=== PATIENT | male | born 1990 | race Caucasian/White ===

== ENCOUNTER 2019-06-06 23:16 | Inpatient (IN) | payer SELFPAY ==
[~2019-06-06] VITALS: Ht 170.2 cm; Wt 72.1 kg
[2019-06-06] MEDS ORDERED: SODIUM CHLORIDE 0.9% 1,000 ML IV ONE (23:59)
[2019-06-07] VITALS (10 sets, daily range): BP systolic 113–137; BP diastolic 61–80
[2019-06-07 00:49] LABS: BASOPHILS % 0.3 % (0.0-2.0); EOSINOPHILS % 0.6 % (0.0-5.0); HEMATOCRIT. 46.9 % (42.0-52.0); HEMOGLOBIN. 16.5 g/dL (14.0-18.0); MEAN CORPUSCULAR HEMOGLOBIN 33.6 pg (28.0-32.0); MEAN CORPUSCULAR VOLUME 95.7 fL (80.0-94.0); MEAN PLATELET VOLUME 8.4 fl (7.4-10.4); MONOCYTES % 6.2 % (2.0-8.0); NEUTROPHILS % 62.9 % (40.0-76.0); PLATELET 235 x1000/uL (130-400); RED CELL DISTRIBUTION WIDTH 12.8 % (11.6-14.6)
[2019-06-07 00:55] LABS: CHLORIDE 98 mEq/L (98-107)
[2019-06-07 01:00] LABS: ETHANOL BLOOD 168 mg/dL
[2019-06-07 01:02] LABS: LDL CHOLESTEROL 170 mg/dL (5-100)
[2019-06-07 02:12] LABS: CLARITY URINE CLEAR (CLEAR); COLOR URINE YELLOW (YELLOW); KETONES URINE 1+ (NEGATIVE); LEUKOCYTE ESTERASE URINE NEGATIVE (NEGATIVE); NITRITE URINE NEGATIVE (NEGATIVE); OCCULT BLOOD URINE NEGATIVE (NEGATIVE); PROTEIN URINE 1+ (NEGATIVE); SPECIFIC GRAVITY URINE 1.051 (1.005-1.030); UROBILINOGEN URINE 0.2 E.U./dL (0.2-1.0)
[2019-06-07 02:23] LABS: *AMPHETAMINES SCREEN URINE PRESUMTIVE POSITIVE (NEGATIVE); *BARBITURATES SCREEN URINE NEGATIVE (NEGATIVE); *BENZODIAZEPINES SCREEN URINE NEGATIVE (NEGATIVE); *COCAINE SCREEN URINE NEGATIVE (NEGATIVE)
[2019-06-07 02:24] LABS: CANNABINOID URINE SCREEN NEGATIVE (NEGATIVE); METHADONE URINE SCREEN NEGATIVE (NEGATIVE); OPIATES URINE SCREEN NEGATIVE (NEGATIVE); PHENCYCLIDINE URINE SCREEN NEGATIVE (NEGATIVE)
[2019-06-07] MEDS ORDERED: IOHEXOL-350 100 ML BOTTLE ONE (02:54)
[2019-06-07] MEDS ORDERED: ASPIRIN 325MG TABLET PO ONE (03:30)
[2019-06-07] MEDS ORDERED: CLONIDINE 0.1MG TABLET PO PRN (08:00)
[2019-06-07] MEDS ORDERED: ACETAMINOPHEN 325MG TABLET PO PRN (08:00)
[2019-06-07] MEDS ORDERED: ONDANSETRON HCL 4MG/2ML INJ IV PRN (08:00)
[2019-06-07] MEDS ORDERED: LORAZEPAM 0.5MG TABLET PO PRN (08:00)
[2019-06-07] MEDS ORDERED: HYDROCODONE/ACETAMINOPHEN 5/325MG TABLET PO PRN (08:00)
[2019-06-07] MEDS ORDERED: LORAZEPAM 2MG/ML CPJ IV PRN (08:00)
[2019-06-07] MEDS ORDERED: DOCUSATE SODIUM 100MG CAPSULE PO PRN (08:00)
[2019-06-07] MEDS ORDERED: IPRATROPIUM/ALBUTEROL 0.5-3(2.5)MG/3ML NEB INH PRN (08:00)
[2019-06-07] MEDS ORDERED: FOLIC ACID 1 MG, THIAMINE HCL 100 MG, MVI, ADULT NO.1 10 ML in DEXTROSE 5% WATER 1,000 ML IV ONE ×4 (10:00)
[2019-06-07] MEDS: INSULIN GLARGINE UD 100 UNITS/ML SYR SUBCUT SCH ×2 (10:29→21:28)
[2019-06-07] MEDS: CHLORDIAZEPOXIDE 25MG CAPSULE PO SCH ×2 (13:51→21:28)
[2019-06-07] MEDS ORDERED: DEXTROSE 50% WATER 50ML SYRINGE IV PRN (17:45)
[2019-06-07] MEDS: BLOOD SUGAR DIAGNOSTIC STRIP TEST SCH ×2 (17:45→21:00)
[2019-06-07] MEDS: INSULIN LISPRO 100 UNITS/ML SUBCUT SCH ×2 (18:10→22:24)
[2019-06-07] MEDS ORDERED: ENOXAPARIN 40MG/0.4ML SYR SUBCUT SCH (20:45)
[2019-06-07] MEDS ORDERED: ATORVASTATIN CALCIUM 40MG TABLET PO SCH (21:00)
[2019-06-07] MEDS: CLOPIDOGREL 75MG TABLET PO SCH (22:27)
[2019-06-08] VITALS (7 sets, daily range): BP systolic 104–119; BP diastolic 60–73
[2019-06-08 06:52] LABS: CHLORIDE 104 mEq/L (98-107)
[2019-06-08 07:00] LABS: BASOPHILS % 0.6 % (0.0-2.0); EOSINOPHILS % 3.9 % (0.0-5.0); HEMATOCRIT. 46.8 % (42.0-52.0); HEMOGLOBIN. 16.5 g/dL (14.0-18.0); LYMPHOCYTES % 37.1 % (20.0-50.0); MEAN CORPUSCULAR HEMOGLOBIN 33.4 pg (28.0-32.0); MEAN PLATELET VOLUME 8.8 fl (7.4-10.4); MONOCYTES % 8.1 % (2.0-8.0); NEUTROPHILS % 50.3 % (40.0-76.0); PLATELET 231 x1000/uL (130-400); RED BLOOD CELL COUNT 4.93 mill/uL (4.7-6.1); RED CELL DISTRIBUTION WIDTH 12.6 % (11.6-14.6)
[2019-06-08] MEDS: CHLORDIAZEPOXIDE 25MG CAPSULE PO SCH ×2 (07:02→12:43)
[2019-06-08 07:04] LABS: T4 FREE 1.01 ng/dL (0.76-1.46)
[2019-06-08] MEDS: BLOOD SUGAR DIAGNOSTIC STRIP TEST SCH ×3 (07:30→18:16)
[2019-06-08 07:50] LABS: VITAMIN B12 SERUM 520 pg/mL (211-911)
[2019-06-08] MEDS: CLOPIDOGREL 75MG TABLET PO SCH (08:32)
[2019-06-08] MEDS: INSULIN LISPRO 100 UNITS/ML SUBCUT SCH ×4 (08:33→12:42)
[2019-06-08] MEDS: INSULIN GLARGINE UD 100 UNITS/ML SYR SUBCUT SCH (11:40)
[2019-06-08] MEDS ORDERED: LANTUSUD SUBCUT (17:31)
[2019-06-08] MEDS ORDERED: METF500T PO (17:31)
[2019-06-08] MEDS ORDERED: ASPI-1393 MT (17:31)
[2019-06-08] MEDS ORDERED: LINA5TAB PO (17:31)
[2019-06-08] MEDS ORDERED: CLOP75TA15 PO (17:31)
[2019-06-08] MEDS ORDERED: L25 PO (17:31)
[2019-06-08] MEDS ORDERED: AMA2 PO (17:31)
[2019-06-08] MEDS ORDERED: LIP40 PO (17:31)
[2019-06-08] MEDS ORDERED: INSULIN LISPRO 100 UNITS/ML SUBCUT SCH (18:00)
[2019-06-08] MEDS ORDERED: METFORMIN HCL 500MG TABLET PO SCH (18:00)
[2019-06-08] MEDS ORDERED: GLIMEPIRIDE 2MG TABLET PO SCH (18:00)
[2019-06-08 20:16] LABS: FOLIC ACID (FOLATE) SERUM > 20.00 ng/mL (>5.38)
[2019-06-08] MEDS ORDERED: INSULIN GLARGINE UD 100 UNITS/ML SYR SUBCUT SCH (22:00)
[2019-06-09] MEDS ORDERED: LINAGLIPTIN 5MG TABLET PO SCH (09:00)
== END 2019-06-08 18:44 | disposition left against medical advice (07) | DRG 45 ==
LOC: ER 23:16 → 5EST 06-07 03:23 → EDBEDREQTM 06-07 03:28 → EDBEDREQ 06-07 03:28 → ENRESERV 06-07 03:43
PROVIDERS: ADMIT Internal Medicine; ATTEND Internal Medicine
DX: I63.9 Cerebral infarction, unspecified (principal); E11.65 Type 2 diabetes mellitus with hyperglycemia; D75.89 Other specified diseases of blood and blood-forming organs; E78.5 Hyperlipidemia, unspecified; I10 Essential (primary) hypertension; R82.4 Acetonuria; R81 Glycosuria; R80.9 Proteinuria, unspecified; F17.210 Nicotine dependence, cigarettes, uncomplicated; F10.20 Alcohol dependence, uncomplicated; R00.0 Tachycardia, unspecified; F15.10 Other stimulant abuse, uncomplicated; E03.9 Hypothyroidism, unspecified; Z53.21 Procedure and treatment not carried out due to patient leaving prior to being seen by health care provider; Z83.3 Family history of diabetes mellitus; Z71.52 Counseling for family member of drug abuser; Z84.89 Family history of other specified conditions
CPT/HCPCS: 36415; 70496; 70551; 71045; 80048; 80061; 80305; 80320; 81003; 82465; 82607; 82746; 82962; 83036; 83721; 84439; 84443; 84481; 84484; 92610; 93005; 93306; 96365; 96375; 97162; 97165; 99285; J1650; J1815; J3411; J3490; J7030; J7070; Q9967; G0480